=== PATIENT | female | born 2000 | race Caucasian/White ===

== ENCOUNTER 2021-09-10 15:39 | Emergency (ER) | payer OTHER, SELFPAY ==
[2021-09-10 15:51] VITALS: BP 149/92; PULSE 82; RESP 20; TEMP 36.7; O2SAT 100; BMI 17.8
--- NOTE | 2021-09-10 16:26 | CRLHL7_ITS ---
For Patients: As a result of the Cures Act, medical imaging exams and procedure reports are released immediately into your electronic medical record. You may view this report before your referring provider. If you have questions, please contact your health care provider. INDICATION: Chest pressure COMPARISON: None TECHNIQUE: PA and lateral views of the chest were acquired FINDINGS: TUBES AND LINES: None. HEART AND MEDIASTINUM: The heart size is normal. The mediastinal contour appears normal for patient age. LUNGS AND PLEURAL SPACES: The lungs appear normal.The pleural spaces are unremarkable. OSSEOUS STRUCTURES: Age-appropriate appearance. No acute focal finding. IMPRESSION: No evidence of active pulmonary disease. Dictated by Jonny Quiros MD @ 09/10/2021 5:21:22 PM (Electronically Signed)
--- NOTE | 2021-09-10 16:37 | ED_ITS ---
HPI - Chest Pain General Chief Complaint: Chest Pain Stated Complaint: CHEST PRESSURE Time Seen by Provider: 09/10/21 16:12 Source: patient and family Mode of arrival: ambulatory Limitations: no limitations History of Present Illness HPI narrative: 21-year-old woman presenting to the emergency department with complaint left chest sided pain. Pain takes the form more of a pressure heaviness. Seems to radiate into the underside of her left arm as well now. Feels like it is hard to take a deep breath in that it causes more pain. She could not sleep on her left side noting that it hurt more overnight. She can reproduce the pain little bit with sternal pressure. Helps to hold her upper left chest. She was lying in bed when it started hurting. No fever no cough or cold symptoms no rashes. It is better to sit worse to lay back. There has been no trauma. She did try 400 mg of ibuprofen and did not seem to make much of a difference. No leg pain or swelling Family history-no coagulopathies Related Data Home Medications Medication Instructions Recorded Confirmed norgestimate 0.25 mg-ethinyl 1 tab PO DAILY 09/10/21 09/10/21 estradiol 35 mcg tablet (Estarylla) valacyclovir 500 mg tablet 500 mg PO DAILY 09/10/21 09/10/21 (Valtrex) Previous Rx's Medication Instructions Recorded indomethacin 25 mg capsule 25 mg PO TID #15 cap 09/10/21 Allergies Allergy/AdvReac Type Severity Reaction Status Date / Time No Known Drug Allergies Allergy Verified 09/10/21 15:57 Review of Systems Status of ROS Reports: 10 or more systems reviewed and unremarkable except as noted in History and below [facility] Medical History (Updated 09/10/21 @ 18:31 by Arnold Mast MD) No significant past medical history Surgical History (Updated 09/10/21 @ 17:12 by Blessing Fonseca RN) No significant past surgical history Social History Smoking Status: Former smoker Do you use any of these nicotine containing products: None Second hand tobacco smoke exposure: No How often do you have a drink containing alcohol: monthly or less How many standard drinks containing alcohol do you have on a typical day: 1 or 2 How often do you have six or more drinks on one occasion: Less than monthly AUDIT-C Alcohol total score: 2 Non-prescribed substance use: denies use Exam Narrative Exam Narrative: Pleasant, calm, NAD. Slim but well-nourished. Speaking easily. Breathing easily though describes pleuritic pain. Moving all extremities without difficulty. is well perfused peripherally. Equal pulses. Negative Homans Neck is supple and not reproducing discomfort with movement. No supraclavicular crepitus Lungs are clear equal expansion excursion. Heart with regular rate and rhythm no murmur rub or gallop. no rubs appreciated either with position changes. Skin is warm dry without rash. Chest with some discomfort to palpation along the left lower anterior chest wall. Const Vital Signs, click to edit/add: Vital Signs - 24 hr 09/10/21 15:51 09/10/21 17:30 09/10/21 18:00 Temperature 98.1 F Pulse Rate Pulse Rate [Right Pulse Oximeter] 82 59 L 64 Respiratory Rate 20 12 12 Blood Pressure Blood Pressure [Right Upper Arm] 149/92 H 121/84 115/89 Pulse Oximetry 100 99 99 09/10/21 18:30 09/10/21 18:51 Temperature 97.8 F 97.8 F Pulse Rate 66 Pulse Rate [Right Pulse Oximeter] 66 Respiratory Rate 18 18 Blood Pressure 121/84 Blood Pressure [Right Upper Arm] 121/84 Pulse Oximetry 98 Documenting provider has reviewed patient's vital signs: yes Common normals: no apparent distress and healthy appearing Course Course Hospital Course: She did not feel she needed any medication for pain. We did do initial laboratory evaluation as well as chest x-ray. See results below. Two-view Chest x-ray reviewed by me was unremarkable absent of pneumothorax and infiltrate with normal cardiac silhouette. Vital Signs Vital signs: Initial Vital Signs Temperature 98.1 F 09/10/21 15:51 Temperature Source Temporal Artery Scan 09/10/21 15:51 Pulse Rate 82 09/10/21 15:51 Pulse Rhythm 09/10/21 15:51 Respiratory Rate 20 09/10/21 15:51 Blood Pressure 149/92 H 09/10/21 15:51 Blood Pressure Mean 111 09/10/21 15:51 Blood Pressure Position Sitting 09/10/21 15:51 Pulse Oximetry 100 09/10/21 15:51 Oxygen Delivery Method 09/10/21 15:51 Vital Signs Temperature 98.1 F 09/10/21 15:51 Pulse Rate 82 09/10/21 15:51 Respiratory Rate 20 09/10/21 15:51 Blood Pressure 149/92 H 09/10/21 15:51 Pulse Oximetry 100 09/10/21 15:51 Temperature 97.8 F 09/10/21 18:51 Pulse Rate 66 09/10/21 18:51 Respiratory Rate 18 09/10/21 18:51 Blood Pressure 121/84 09/10/21 18:51 Pulse Oximetry 98 09/10/21 18:30 MDM - Chest Pain MDM Narrative Medical decision making narrative: Differential as below and does include pneumonia, pericarditis, chest wall pain, myocardial infarction though unlikely. EKG reviewed by me shows normal sinus rhythm rate of 69. No ischemic changes appreciated. I discussed that likely this would be a diagnosis of exclusion. Easily ambulatory from the ER with father. Discussed options for anti-inflammatories. Prescribed indomethacin for 4-5 day course regularly dosed with a little bit of food. Differential Diagnosis Differential diagnosis: Likely fracture of rib, pneumothorax, atypical chest pain and costochondritis Medical Records Data Attestation: I reviewed the patient's medical records. Medical records narrative: No medical records available for review after search Lab Data Attestation: I reviewed the patient's lab results. Labs: Lab Results 09/10/21 09/10/21 09/10/21 Range/Units 16:50 16:50 16:50 WBC (4.50-11.00) K/uL RBC (4.00-5.20) m/uL Hgb (12.0-16.0) gm/dL Hct (33.0-51.0) % MCV (80-100) fL MCH (26-34) pg MCHC (32-36) gm/dL RDW Coeff of Dorothy (11.5-15.5) % Plt Count (140-440) K/uL Neut % (Auto) (42.0-72.0) % Lymph % (Auto) (20-44) % [place] % (Auto) (0.0-11.0) % Eos % (Auto) (0.0-7.0) % Baso % (Auto) (0.0-3.0) % Neut # (Auto) (1.7-7.0) K/uL Lymph # (Auto) (0.90-2.90) K/uL [place] # (Auto) (0.00-0.90) K/UL Eos # (Auto) (0.00-0.50) K/uL Baso # (Auto) (0.00-0.30) K/uL Abs Immat Gran (auto) (0.00-0.30) K/uL D-Dimer Quant (PE/DVT) 0.34 (0.00-0.50) ug/ml Sodium 134 L (135-149) mmol/L Potassium 3.1 L (3.6-5.1) mmol/L Chloride 100 (96-114) mmol/L Carbon Dioxide 27 (20-32) mmol/L BUN 9 (5-24) mg/dL Creatinine 0.5 (0.5-1.5) mg/dL Estimated Creat Clear 140.19 Glucose 112 (60-115) mg/dL Calcium 9.3 (8.4-10.6) mg/dL Troponin I < 0.01 L (0.01-0.04) ng/mL C-Reactive Protein < 0.5 L (0.5-1.0) mg/dL POC Troponin I 0.00 L (0.01-0.04) ng/ml 09/10/21 Range/Units 16:50 WBC 7.52 (4.50-11.00) K/uL RBC 4.24 (4.00-5.20) m/uL Hgb 13.9 (12.0-16.0) gm/dL Hct 40.4 (33.0-51.0) % MCV 95 (80-100) fL MCH 33 (26-34) pg MCHC 34 (32-36) gm/dL RDW Coeff of Dorothy 12.5 (11.5-15.5) % Plt Count 289 (140-440) K/uL Neut % (Auto) 61.7 (42.0-72.0) % Lymph % (Auto) 28.2 (20-44) % [place] % (Auto) 7.4 (0.0-11.0) % Eos % (Auto) 2.3 (0.0-7.0) % Baso % (Auto) 0.4 (0.0-3.0) % Neut # (Auto) 4.64 (1.7-7.0) K/uL Lymph # (Auto) 2.12 (0.90-2.90) K/uL [place] # (Auto) 0.60 (0.00-0.90) K/UL Eos # (Auto) 0.17 (0.00-0.50) K/uL Baso # (Auto) 0.03 (0.00-0.30) K/uL Abs Immat Gran (auto) 0.00 (0.00-0.30) K/uL D-Dimer Quant (PE/DVT) (0.00-0.50) ug/ml Sodium (135-149) mmol/L Potassium (3.6-5.1) mmol/L Chloride (96-114) mmol/L Carbon Dioxide (20-32) mmol/L BUN (5-24) mg/dL Creatinine (0.5-1.5) mg/dL Estimated Creat Clear Glucose (60-115) mg/dL Calcium (8.4-10.6) mg/dL Troponin I (0.01-0.04) ng/mL C-Reactive Protein (0.5-1.0) mg/dL POC Troponin I (0.01-0.04) ng/ml Discharge Plan Discharge Clinical Impression: Chest pain, pleuritic, Hypokalemia Patient Disposition: Home w/ Parent or Adult Condition: Stable Instructions: Potassium Content of Foods List (ED) Additional Instructions: Focus on hydration. Take the medication regularly, ideally with a little food over the next 4 - 5 days. Return for marked increase in pain, increasing shortness of breath, lightheadedness, associated fever. Prescriptions: New indomethacin 25 mg capsule 25 mg PO TID Qty: 15 0RF Rx Instructions: administer with food or milk No Action valacyclovir [Valtrex] 500 mg tablet 500 mg PO DAILY 0RF norgestimate-ethinyl estradiol [Estarylla] 0.25-35 mg-mcg tablet 1 tab PO DAILY 0RF Follow Up/Referrals: Miya Booker MD [Primary Care Provider] - Stand Alone Forms: MyHealth Info Instructions
[2021-09-10 17:03] LABS: Basophils Absolute Auto 0.03 K/uL (0.00-0.30); Basophils Percent Auto 0.4 % (0.0-3.0); Eosinophils Absolute Auto 0.17 K/uL (0.00-0.50); Eosinophils Percent Auto 2.3 % (0.0-7.0); Hematocrit 40.4 % (33.0-51.0); Hemoglobin* 13.9 gm/dL (12.0-16.0); Lymphocytes Absolute Auto 2.12 K/uL (0.90-2.90); Lymphocytes Percent Auto 28.2 % (20-44); Mean Corpuscular HGB Conc 34 gm/dL (32-36); Mean Corpuscular Hemoglobin 33 pg (26-34); Mean Corpuscular Volume 95 fL (80-100); Monocytes Percent Auto 7.4 % (0.0-11.0); Neutrophils Absolute Auto 4.64 K/uL (1.7-7.0); Neutrophils Percent Auto 61.7 % (42.0-72.0); Platelet Count* 289 K/uL (140-440); RDW Coefficient of Variation % 12.5 % (11.5-15.5); Red Blood Count 4.24 m/uL (4.00-5.20); White Blood Count* 7.52 K/uL (4.50-11.00)
[2021-09-10 17:06] LABS: Slide Review Reflex No
[2021-09-10 17:19] LABS: Chloride* 100 mmol/L (96-114); Potassium* 3.1 mmol/L (3.6-5.1); Sodium* 134 mmol/L (135-149)
[2021-09-10 17:22] LABS: Creatinine* 0.5 mg/dL (0.5-1.5); Est. Creatinine Clearance* 140.19; Estimated Glomerular Filt Rate 136.76
[2021-09-10 17:23] LABS: Blood Urea Nitrogen* 9 mg/dL (5-24); Calcium* 9.3 mg/dL (8.4-10.6); Carbon Dioxide* 27 mmol/L (20-32); Glucose* 112 mg/dL (60-115)
[2021-09-10 17:25] LABS: D Dimer Quantitative* 0.34 ug/ml (0.00-0.50)
[2021-09-10 17:30] VITALS: BP 121/84; PULSE 59; RESP 12; O2SAT 99
[2021-09-10 17:40] LABS: C Reactive Protein* < 0.5 mg/dL (0.5-1.0); Troponin I* < 0.01 ng/mL (0.01-0.04)
[2021-09-10 18:00] VITALS: BP 115/89; PULSE 64; RESP 12; O2SAT 99
[2021-09-10 18:30] VITALS: BP 121/84; PULSE 66; RESP 18; TEMP 36.6; O2SAT 98
[2021-09-10] MEDS: KETOROLAC 15 MG/ML inj IVP (18:34)
[2021-09-10 18:51] VITALS: BP 121/84; PULSE 66; RESP 18; TEMP 36.6
== END 2021-09-10 18:48 ==
PROVIDERS: Emergency Provider Family Medicine; PCP Family Medicine
DX: R07.9 Chest pain, unspecified (principal); E87.6 Hypokalemia
CPT/HCPCS: 36415; 71046; 80048; 84484; 85025; 85379; 86140; 93005; 96374; 99283; 99285; J1885